=== PATIENT | male | born 1985 | race Caucasian/White ===

== ENCOUNTER 2019-04-07 18:15 | Emergency (ER) | payer OTHER ==
[~2019-04-07] VITALS: Ht 167.6 cm; Wt 60.0 kg
[~2019-04-07 18:15] MED LIST: HYDR-4011 PO; IBUP-1561 PO
[2019-04-07 18:22] VITALS: BP 141/101; PULSE 105; RESP 19; Ht 167.6 cm; Wt 60.0 kg
[2019-04-07] MEDS ORDERED: KETOROLAC 30 MG INJ IM STA (20:11)
[2019-04-07] MEDS ORDERED: HYDROCODONE/APAP (5/325) TAB PO ONE (22:00)
== END 2019-04-07 22:43 | disposition left against medical advice (07) ==
LOC: FTE 18:15
DX: S59.901A Unspecified injury of right elbow, initial encounter (principal); V00.131A Fall from skateboard, initial encounter
CPT/HCPCS: 73080; 73110; 73130; 96372; J1885; Z7502; Z7610